=== PATIENT | male | born 1990 | race Caucasian/White ===

== ENCOUNTER 2018-03-26 16:58 | Observation (INO) | payer SELFPAY ==
[2018-03-26] MEDS: SOD CHLORIDE 0.9% 1,000 ML IV (19:17)
[2018-03-26] MEDS: morphine 4 MG/ML VIAL IV (19:18)
[2018-03-26] MEDS: ACETAMINOPHEN 500 MG TAB PO (19:18)
[2018-03-26] MEDS: ONDANSETRON 4 MG INJ IV (19:18)
[2018-03-26 19:44] LABS: ADD MAN DIFF? NO
[2018-03-26 19:46] LABS: BASOPHILS % 0.6 % (0.0-2.0); EOSINOPHILS % 0.2 % (0.0-7.0); HEMATOCRIT 43.5 % (42.0-52.0); HEMOGLOBIN 14.3 g/dl (14.0-18.0); LYMPHOCYTES # 1.3 10^3/ul (0.8-2.9); LYMPHOCYTES % 25.9 % (15.0-51.0); MEAN CORPUSCULAR HEMOGLOBIN 27.8 pg (29.0-33.0); MEAN CORPUSCULAR HGB CONC 32.9 g/dl (32.0-37.0); MEAN CORPUSCULAR VOLUME 84.6 fl (82.0-101.0); MEAN PLATELET VOLUME 9.7 fl (7.4-10.4); MONOCYTE # 0.5 10^3/ul (0.3-0.9); MONOCYTES % 9.8 % (0.0-11.0); NEUTROPHIL # 3.2 10^3/ul (1.6-7.5); NEUTROPHILS % 62.9 % (39.0-77.0); PLATELET COUNT 217 10^3/UL (140-415); RED BLOOD COUNT 5.14 10^6/ul (4.70-6.10); RED CELL DISTRIBUTION WIDTH 13.6 % (11.5-14.5)
[2018-03-26 19:58] LABS: ADD UMIC YES; UR ASCORBIC ACID NEGATIVE (NEGATIVE); UR BILIRUBIN (Dip) NEGATIVE (NEGATIVE); UR BLOOD (Dip) NEGATIVE (NEGATIVE); UR CLARITY CLEAR (CLEAR); UR COLOR YELLOW (YELLOW); UR GLUCOSE (Dip) NEGATIVE (NEGATIVE); UR KETONES (Dip) NEGATIVE (NEGATIVE); UR LEUKOCYTE ESTERASE (Dip) NEGATIVE Leu/ul (NEGATIVE); UR MUCUS MODERATE /HPF (NONE SEEN); UR NITRITE (Dip) NEGATIVE (NEGATIVE); UR RBC 3 /HPF (0-5); UR SPECIFIC GRAVITY (Dip) 1.019 (1.003-1.030); UR TOTAL PROTEIN (Dip) 1+ mg/dl (NEGATIVE); UR UROBILINOGEN (Dip) 1+ mg/dL (NEGATIVE); UR WBC 2 /HPF (0-5)
[2018-03-26 20:03] LABS: ALANINE AMINOTRANSFERASE 58 IU/L (13-69); ALBUMIN 4.2 g/dl (3.3-4.9); ALBUMIN/GLOBULIN RATIO 1.02; ALKALINE PHOSPHATASE 164 IU/L (42-121); ANION GAP 14 (5-13); ASPARTATE AMINO TRANSFERASE 89 IU/L (15-46); BILIRUBIN,INDIRECT 0.6 mg/dl (0-1.1); BILIRUBIN,TOTAL 0.6 mg/dl (0.2-1.3); BLOOD UREA NITROGEN 11 mg/dl (7-20); CALCIUM 8.6 mg/dl (8.4-10.2); CARBON DIOXIDE 22 mmol/L (21-31); CHLORIDE 103 mmol/L (97-110); CREATININE 1.05 mg/dl (0.61-1.24); Estimated GFR > 60 mL/min (>60); GLUCOSE 97 mg/dl (70-220); LIPASE 76 U/L (23-300); POTASSIUM 3.9 mmol/L (3.5-5.1); TOTAL PROTEIN 8.3 g/dl (6.1-8.1)
[2018-03-26 20:04] LABS: INR 0.97
[2018-03-26 20:05] LABS: PARTIAL THROMBOPLASTIN TIME 32.6 Sec (23.0-35.0)
[2018-03-26 20:11] LABS: SODIUM 139 mmol/L (135-144)
[2018-03-26 21:00] LABS: MONOTEST Negative (NEG)
[2018-03-27] MEDS ORDERED: NACL 0.9% 3 ML SYG IV (00:30)
[2018-03-27] MEDS ORDERED: ONDANSETRON 4 MG INJ IV (00:30)
[2018-03-27] MEDS ORDERED: DOCUSATE SODIUM 100 MG CAP PO (00:30)
[2018-03-27] MEDS: HEPARIN 5,000 UNIT/1 ML VIAL SC ×4 (00:30→22:09)
[2018-03-27] MEDS ORDERED: BISACODYL (EC) 5 MG TAB PO (00:30)
[2018-03-27 00:44] LABS: HAAIG REFLEX REFLEX FILED
[2018-03-27 01:16] LABS: ETHANOL < 10.0 mg/dl (0-0)
[2018-03-27 03:11] LABS: AMPHETAMINE/METHAMPHETAMINE Negative (NEGATIVE); BARBITURATES Negative (NEGATIVE); BENZODIAZEPINES Negative (NEGATIVE); CANNABINOIDS Positive (NEGATIVE); COCAINE Negative (NEGATIVE); OPIATES Negative (NEGATIVE)
[2018-03-27 04:19] LABS: CARCINOEMBRYONIC ANTIGEN 1.4 ng/ml (0.0-5.0)
[2018-03-27 05:29] LABS: ADD MAN DIFF? NO
[2018-03-27 05:34] LABS: WHITE BLOOD COUNT 4.3 10^3/ul (4.8-10.8)
[2018-03-27 05:34] LABS: BASOPHILS % 0.5 % (0.0-2.0); EOSINOPHILS # 0.1 10^3/ul (0.0-0.5); EOSINOPHILS % 1.2 % (0.0-7.0); HEMATOCRIT 40.8 % (42.0-52.0); HEMOGLOBIN 13.5 g/dl (14.0-18.0); LYMPHOCYTES # 1.2 10^3/ul (0.8-2.9); LYMPHOCYTES % 28.1 % (15.0-51.0); MEAN CORPUSCULAR HGB CONC 33.1 g/dl (32.0-37.0); MEAN CORPUSCULAR VOLUME 84.5 fl (82.0-101.0); MEAN PLATELET VOLUME 9.4 fl (7.4-10.4); MONOCYTE # 0.7 10^3/ul (0.3-0.9); MONOCYTES % 15.2 % (0.0-11.0); NEUTROPHIL # 2.3 10^3/ul (1.6-7.5); NEUTROPHILS % 54.5 % (39.0-77.0); PLATELET COUNT 195 10^3/UL (140-415); RED BLOOD COUNT 4.83 10^6/ul (4.70-6.10); RED CELL DISTRIBUTION WIDTH 13.8 % (11.5-14.5)
[2018-03-27 05:49] LABS: CANCER ANTIGEN 19-9 < 1.4 U/ml (0.0-37.0)
[2018-03-27 05:55] LABS: ALANINE AMINOTRANSFERASE 67 IU/L (13-69); ALBUMIN 3.9 g/dl (3.3-4.9); ALBUMIN/GLOBULIN RATIO 1.14; ALKALINE PHOSPHATASE 142 IU/L (42-121); ANION GAP 10 (5-13); ASPARTATE AMINO TRANSFERASE 73 IU/L (15-46); BILIRUBIN,INDIRECT 0.6 mg/dl (0-1.1); BILIRUBIN,TOTAL 0.6 mg/dl (0.2-1.3); BLOOD UREA NITROGEN 15 mg/dl (7-20); CALCIUM 8.5 mg/dl (8.4-10.2); CARBON DIOXIDE 28 mmol/L (21-31); CHLORIDE 102 mmol/L (97-110); CHOL/HDL RATIO 6.3 RATIO; CHOLESTEROL 147 mg/dl (100-200); CREATININE 0.99 mg/dl (0.61-1.24); Estimated GFR > 60 mL/min (>60); GLUCOSE 102 mg/dl (70-220); HDL CHOLESTEROL 23 mg/dl (30-63); LDL CHOLESTEROL,CALCULATED 96 mg/dl; MAGNESIUM 2.1 mg/dl (1.7-2.5); POTASSIUM 3.9 mmol/L (3.5-5.1); SODIUM 140 mmol/L (135-144); TOTAL PROTEIN 7.3 g/dl (6.1-8.1); TRIGLYCERIDES 141 mg/dl (0-149)
[2018-03-27 06:15] LABS: HEPATITIS B SURFACE ANTIGEN NEGATIVE (NEGATIVE)
[2018-03-27 06:33] LABS: HEPATITIS B CORE ANTIBODY NEGATIVE (NEGATIVE); HEPATITIS C VIRAL ANTIBODY NEGATIVE (NEGATIVE)
[2018-03-27 06:33] LABS: HEPATITIS B SURFACE ANTIBODY NEGATIVE (NEGATIVE)
[2018-03-27] MEDS: SOD CHLORIDE 0.9% 100 ML (07:41)
[2018-03-27] MEDS: IOHEXOL 300MG/ML 150 ML BTL (07:42)
[2018-03-27] MEDS: SOD CHLORIDE 0.9% 1,000 ML IV ×3 (08:16→20:20)
[2018-03-27 08:29] LABS: HEMOGLOBIN A1C 5.1 % (0-5.9)
[2018-03-27] MEDS ORDERED: CIPROFLOXACIN 200 MG/D5W IVPB 100 ML IVPB (08:30)
[2018-03-27] MEDS: metroNIDAZOLE 500 MG/NS (PMX) 100 ML IVPB ×3 (10:09→17:55)
[2018-03-27] MEDS: CIPROFLOXACIN 400 MG in D5W 200 ML IVPB ×3 (11:38→22:09)
[2018-03-27 12:29] LABS: HIV 1&2 ANTIBODY NEGATIVE (NEGATIVE)
[2018-03-27] MEDS: DOCUSATE SODIUM 100 MG CAP PO (13:01)
[2018-03-27] MEDS ORDERED: HEPARIN 5,000 UNIT/0.5 ML VIAL (13:50)
[2018-03-27 16:45] LABS: ALPHA FETOPROTEIN 0.97 IU/L (0.00-7.21)
[2018-03-27] MEDS: ACETAMINOPHEN 325 MG TAB PO (20:03)
[2018-03-27] MEDS: morphine 2 MG INJ IV (20:04)
[2018-03-28] MEDS: metroNIDAZOLE 500 MG/NS (PMX) 100 ML IVPB ×3 (00:03→11:46)
[2018-03-28] MEDS: DOCUSATE SODIUM 100 MG CAP PO ×2 (00:04→11:46)
[2018-03-28 05:17] LABS: WHITE BLOOD COUNT 3.5 10^3/ul (4.8-10.8)
[2018-03-28 05:17] LABS: ADD MAN DIFF? NO; BASOPHILS % 0.3 % (0.0-2.0); EOSINOPHILS % 0.6 % (0.0-7.0); HEMATOCRIT 38.8 % (42.0-52.0); HEMOGLOBIN 12.9 g/dl (14.0-18.0); LYMPHOCYTES # 0.9 10^3/ul (0.8-2.9); LYMPHOCYTES % 25.4 % (15.0-51.0); MEAN CORPUSCULAR HEMOGLOBIN 27.6 pg (29.0-33.0); MEAN CORPUSCULAR HGB CONC 33.2 g/dl (32.0-37.0); MEAN CORPUSCULAR VOLUME 83.1 fl (82.0-101.0); MEAN PLATELET VOLUME 9.7 fl (7.4-10.4); MONOCYTE # 0.5 10^3/ul (0.3-0.9); MONOCYTES % 12.7 % (0.0-11.0); NEUTROPHIL # 2.2 10^3/ul (1.6-7.5); NEUTROPHILS % 60.7 % (39.0-77.0); PLATELET COUNT 199 10^3/UL (140-415); RED BLOOD COUNT 4.67 10^6/ul (4.70-6.10); RED CELL DISTRIBUTION WIDTH 13.5 % (11.5-14.5)
[2018-03-28 05:33] LABS: ALANINE AMINOTRANSFERASE 79 IU/L (13-69); ALBUMIN 3.4 g/dl (3.3-4.9); ALBUMIN/GLOBULIN RATIO 1.13; ALKALINE PHOSPHATASE 169 IU/L (42-121); ANION GAP 9 (5-13); ASPARTATE AMINO TRANSFERASE 86 IU/L (15-46); BILIRUBIN,INDIRECT 0.6 mg/dl (0-1.1); BILIRUBIN,TOTAL 0.6 mg/dl (0.2-1.3); BLOOD UREA NITROGEN 9 mg/dl (7-20); CALCIUM 8.4 mg/dl (8.4-10.2); CARBON DIOXIDE 26 mmol/L (21-31); CHLORIDE 102 mmol/L (97-110); CHOL/HDL RATIO 4.9 RATIO; CHOLESTEROL 133 mg/dl (100-200); CREATININE 0.79 mg/dl (0.61-1.24); Estimated GFR > 60 mL/min (>60); GLUCOSE 101 mg/dl (70-220); HDL CHOLESTEROL 27 mg/dl (30-63); LDL CHOLESTEROL,CALCULATED 88 mg/dl; MAGNESIUM 1.8 mg/dl (1.7-2.5); POTASSIUM 4.2 mmol/L (3.5-5.1); SODIUM 137 mmol/L (135-144); TOTAL PROTEIN 6.4 g/dl (6.1-8.1); TRIGLYCERIDES 88 mg/dl (0-149)
[2018-03-28 06:03] LABS: THYROID STIMULATING HORMONE 0.718 MIU/L (0.465-4.680)
[2018-03-28] MEDS: SOD CHLORIDE 0.9% 1,000 ML IV (06:10)
[2018-03-28] MEDS: HEPARIN 5,000 UNIT/1 ML VIAL SC ×2 (06:50→14:00)
[2018-03-28] MEDS: CIPROFLOXACIN 400 MG in D5W 200 ML IVPB (08:36)
[2018-03-28 09:05] LABS: HEMOGLOBIN A1C 5.2 % (0-5.9)
[2018-03-28 13:59] LABS: OCCULT BLOOD STOOL NEGATIVE (NEGATIVE)
[2018-03-28 23:47] LABS: CANCER ANTIGEN 15-3 8 U/mL (<32)
== END 2018-03-28 15:40 | disposition home or self-care (01) ==
LOC: FTE 16:58 → MS1 23:55
DX: K52.9 Noninfective gastroenteritis and colitis, unspecified (principal); R59.0 Localized enlarged lymph nodes; R74.0 Nonspecific elevation of levels of transaminase and lactic acid dehydrogenase [LDH]; K76.0 Fatty (change of) liver, not elsewhere classified; D72.819 Decreased white blood cell count, unspecified; D64.9 Anemia, unspecified; E78.5 Hyperlipidemia, unspecified; K80.20 Calculus of gallbladder without cholecystitis without obstruction; E66.01 Morbid (severe) obesity due to excess calories; Z68.43 Body mass index [BMI] 50.0-59.9, adult; F12.929 Cannabis use, unspecified with intoxication, unspecified
CPT/HCPCS: 36415; 71045; 74176; 74177; 76705; 80053; 80061; 80307; 81001; 82105; 82270; 82378; 82787; 83036; 83690; 83735; 84443; 85025; 85610; 85730; 86300; 86301; 86308; 86703; 86704; 86706; 86709; 86803; 87040; 87045; 87177; 87205; 87340; 96361; 96374; 96375; 99285-25; G0378